=== PATIENT | female | born 1970 | race African-American/Black ===

== ENCOUNTER 2020-06-05 14:00 | Emergency (ER) | payer SELFPAY ==
[~2020-06-05] VITALS: Ht 170.2 cm; Wt 61.0 kg
[2020-06-05 14:03] VITALS: BP 151/99
[2020-06-05] MEDS ORDERED: AMOXICILLIN/POTASSIUM CLAVULANATE 875/125MG TAB PO ONE (15:00)
[2020-06-05] MEDS ORDERED: IBUPROFEN 600MG TABLET PO ONE (15:00)
[2020-06-05] MEDS ORDERED: AMOX50SU15 MT (15:33)
[2020-06-05] MEDS ORDERED: AMOXICILLIN/CLAVULANATE 80MG/ML ORAL SYR PO ONE (15:45)
== END 2020-06-05 15:40 | disposition home or self-care (01) ==
LOC: ER 14:51
DX: K11.20 Sialoadenitis, unspecified (principal)
CPT/HCPCS: 99282; J7042